=== PATIENT | male | born 1950 ===

== ENCOUNTER 2017-04-09 17:36 | Emergency (ER) | payer MEDICAID, OTHER ==
[2017-04-09 17:36] VITALS: BMI 21.7
[2017-04-09] MEDS ORDERED: Naproxen 550 mg Tab PO STA (17:47)
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
[2017-04-09] MEDS ORDERED: Propofol 10 mg/ml Inj (20 ML) IV ONE (19:11)
[2017-04-09] MEDS ORDERED: Propofol 10 mg/ml Inj (20 ML) ONE (19:43)
[2017-04-10 11:58] VITALS: BP 125/72; PULSE 68; RESP 14
[2017-04-10 12:09] VITALS: TEMP 98.8
--- NOTE | 2017-04-11 10:16 | CT ---
PROCEDURE: CT of the right elbow without contrast HISTORY: R elbow, ? radial head disloc, s/p reloc procedure COMPARISON: Comparison is made to the previous x-ray of the right elbow dated 04/09/2017 TECHNIQUE: Axial and reformatted coronal and sagittal CT images of the right elbow were obtained. FINDINGS: The evaluation of the osseous structures at the right elbow is markedly degraded by beam hardening artifact. There is well corticated bone fragment ossicle adjacent to the proximal head of the right radius. This small ossicles may be due to old fracture coronoid process. There is superior dislocation of the radial head. There is other small ossicle seen at the posterior aspect of the right elbow in the posterior fossa of the distal radius adjacent to olecranon process. Quon-rz-coxffvul osteoarthritic changes and marginal osteophyte formations are seen. There is no evidence of acute displaced fracture. No evidence of significant joint effusion. IMPRESSION: Limited study due to large beam artifact. No evidence of acute displaced fracture. Superior dislocation of the radial head. Well corticated ossicle seen adjacent to the radial head could be due to old fracture at the coronoid process from radial dislocation. Small well corticated ossicle also seen at the posterior fossa of the right elbow posterior to the distal humeral epicondyles and adjacent to the olecranon process. Preliminary report was submitted by [facility].
[2017-04-12 13:07] VITALS: O2SAT 98
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
== END 2017-04-09 21:55 | disposition home or self-care (01) ==
LOC: C.ER 17:36
DX: S53.014A Anterior dislocation of right radial head, initial encounter (principal); V49.50XA Passenger injured in collision with unspecified motor vehicles in traffic accident, initial encounter
CPT/HCPCS: 29105; 73030; 73080; 73110; 73200; 99284; J2704

== ENCOUNTER 2017-05-07 18:26 | Emergency (ER) | payer MEDICAID, OTHER ==
[2017-05-07 18:27] VITALS: BMI 21.7
[2017-05-07 18:41] VITALS: TEMP 98.4; O2SAT 99
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
[2017-05-07 19:50] VITALS: BP 112/68; PULSE 71; RESP 15
--- NOTE | 2017-05-08 06:36 | RAD ---
PROCEDURE: Radiographs of the right elbow. HISTORY: pain and swelling, h.o fx COMPARISON: No prior. FINDINGS: BONES: No evidence of acute fracture. JOINTS: Arthritic changes are seen at the right hip joint. There is round ossicle in between the radial head and proximal ulna may represent loose body in the right elbow joint. SOFT TISSUES: There is soft tissue swelling seen around the right elbow. There is metallic staple overlying the posterior aspect of the right elbow posterior to the distal humerus. JOINT EFFUSION: Right elbow joint effusion is seen. OTHER FINDINGS: None. IMPRESSION: Osteoarthritic changes. No evidence of acute fracture. Abnormal shape of the radial head could be due to old fracture. Possible loose body adjacent to the radial head. Small joint effusion. metallic staple overlying the posterior aspect of the right elbow joint.
== END 2017-05-07 19:49 | disposition home or self-care (01) ==
LOC: C.ER 18:26
DX: M25.521 Pain in right elbow (principal); S42.401D Unspecified fracture of lower end of right humerus, subsequent encounter for fracture with routine healing; X58.XXXD Exposure to other specified factors, subsequent encounter

== ENCOUNTER 2017-05-29 02:28 | Emergency (ER) | payer OTHER ==
[2017-05-29 02:28] VITALS: BMI 21.7
[2017-05-29 02:35] VITALS: BP 120/75; PULSE 76; RESP 20; TEMP 98; O2SAT 99
--- NOTE | 2017-05-29 02:51 | C.PDOC ---
History Of Present Illness 66 year old male who presents to the ER with a complaint of constipation, last bowel movement was 7 days ago. Patient reports he has been taking percocet for pain and notes taking milk of magnesia tonight with no relief. Denies fever or chills. Chief Complaint (Nursing): GI Problem History Per: Patient History/Exam Limitations: no limitations Onset/Duration Of Symptoms: Days Current Symptoms Are (Timing): Still Present Radiation Of Pain To:: None Quality Of Discomfort: Unable To Describe Associated Symptoms: Constipation. denies: Fever, Chills Exacerbating Factors: None Alleviating Factors: None Recent travel outside of the [place]: No Past Medical History Reviewed: Historical Data, Nursing Documentation, Vital Signs Vital Signs: Last Vital Signs Temp 98 F 05/29/17 02:31 Pulse 76 05/29/17 02:31 Resp 20 05/29/17 02:31 BP 120/75 05/29/17 02:31 Pulse Ox 99 05/29/17 03:05 - Medical History PMH: Asthma, Bronchitis Comment Only: HIV (Patient and family denied), HTN (Patient and family denied ), Seizures (Patient and family denied), Sexually Transmitted Disease (Patient and family denied) Family History: States: Unknown Family Hx - Social History Hx Tobacco Use: No Hx Alcohol Use: Yes Hx Substance Use: No - Immunization History Hx Tetanus Toxoid Vaccination: No Hx Influenza Vaccination: No Hx Pneumococcal Vaccination: No Review Of Systems Constitutional: Negative for: Fever, Chills Gastrointestinal: Positive for: Constipation Physical Exam - Physical Exam Appears: Non-toxic, Other (Mild distress) Skin: Normal Color, Warm, Dry Head: Atraumatic, Normacephalic Oral Mucosa: Moist Chest: Symmetrical, No Tenderness Cardiovascular: Rhythm Regular, No Murmur Respiratory: Normal Breath Sounds, No Rales, No Rhonchi, No Wheezing Gastrointestinal/Abdominal: Soft, No Tenderness Rectal: Other (Hardened stools in rectal vault) Neurological/Psych: Oriented x3, Normal Speech, Normal Cognition ED Course And Treatment O2 Sat by Pulse Oximetry: 99 Pulse Ox Interpretation: Normal (Room air) Progress Note: Fleet edema ordered. On reevaluation, patient has disimpacted stools with good results, will discharge home. Disposition Counseled Patient/Family Regarding: Diagnosis - Disposition Referrals: Non [facility] Provider, [Primary Care Provider] - [facility] at [facility] [Outside] Disposition: HOME/ ROUTINE Disposition Time: 03:04 Condition: IMPROVED Prescriptions: Docusate [Colace] 100 mg PO BID #20 cap Instructions: Constipation (GEN), High Fiber Diet (ED) Forms: [facility] (Andorran) - POA Present On Arrival: None - Clinical Impression Clinical Impression: Constipation - Scribe Statement The provider has reviewed the documentation as recorded by the Scribe Daniel Disla All medical record entries made by the Juancarlosibe were at my direction and personally dictated by me. I have reviewed the chart and agree that the record accurately reflects my personal performance of the history, physical exam, medical decision making, and the department course for this patient. I have also personally directed, reviewed, and agree with the discharge instructions and disposition.
== END 2017-05-29 03:09 | disposition home or self-care (01) ==
LOC: SUPCPDRO 02:28 → C.ER 02:28
DX: K59.00 Constipation, unspecified (principal)

== ENCOUNTER 2019-02-05 12:54 | Observation (INO) | payer MEDICAID, OTHER ==
[2019-02-05 13:01] VITALS: BMI 24.4
[2019-02-05 13:55] LABS: BASO % 0.2 % (0.0-2.0); EOS # 0.3 K/uL (0.0-0.7); EOS % 5.5 % (0.0-4.0); HEMOGLOBIN 17.1 g/dL (12.0-18.0); LYMPH # 1.6 K/uL (1.0-4.3); LYMPH % 33.6 % (20.0-40.0); MEAN CELL VOLUME 90.9 fL (80.0-94.0); MEAN CORPUSCULAR HEMOGLOBIN 31.4 pg (27.0-31.0); MEAN CORPUSCULAR HGB CONC 34.5 g/dL (33.0-37.0); MEAN PLATELET VOLUME 9.3 fL (7.2-11.7); MONO # 0.5 K/uL (0.0-0.8); NEUT # 2.4 K/uL (1.8-7.0); NEUT % 49.7 % (50.0-75.0); NRBC % 0.3 % (0.0-2.0); RBC 5.46 Mil/uL (4.40-5.90); RED CELL DISTRIBUTION WIDTH 13.7 % (11.5-14.5); WHITE BLOOD COUNT 4.8 K/uL (4.8-10.8)
[2019-02-05 14:00] LABS: ALB/GLOB RATIO 1.3 (1.0-2.1); ALBUMIN 4.1 g/dL (3.5-5.0); ALT/SGPT 28 U/L (21-72); AST/SGOT 27 U/L (17-59); BLOOD UREA NITROGEN 15 mg/dL (9-20); CALCIUM 9.4 mg/dl (8.6-10.4); GFR NON-AFRICAN AMERICAN > 60
[2019-02-05 14:12] LABS: B-TYPE NATRIURETIC PEPTIDE 39.3 pg/mL (0-900)
--- NOTE | 2019-02-05 14:12 | C.PDOC ---
History Of Present Illness 68 year old male with PMHx of prostate cancer presents to the ED complaining of intermittent chest pain ongoing for 3 days. Reports he woke up this morning around 0400 with central chest pain radiating to his left side and back. Reports pain is rated 10/10 and is associated with shortness of breath. Denies any lightheadedness, dizziness, headache, fever, chills, syncope, diaphoresis, or any other physical complaints. Time Seen by Provider: 02/05/19 13:12 Chief Complaint (Nursing): Chest Pain History Per: Patient History/Exam Limitations: no limitations Onset/Duration Of Symptoms: Days Current Symptoms Are (Timing): Still Present Quality: "Pain" Associated Symptoms: Dyspnea. denies: Nausea, Diaphoresis, Syncope Past Medical History Reviewed: Historical Data, Nursing Documentation, Vital Signs Vital Signs: Last Vital Signs Temp 98.8 F 02/05/19 12:58 Pulse 95 H 02/05/19 12:58 Resp 18 02/05/19 12:58 BP 156/69 H 02/05/19 12:58 Pulse Ox 99 02/05/19 12:58 Primary Care Provider: FAMILY PROVIDER,NO - Medical History PMH: Asthma, Bronchitis Comment Only: HIV (Patient and family denied), HTN (Patient and family denied), Seizures (Patient and family denied), Sexually Transmitted Disease (Patient and family denied) Other Surgeries: Hx of surgeries Family History: States: No Known Family Hx - Social History Hx Tobacco Use: No Hx Alcohol Use: Yes Hx Substance Use: No - Immunization History Hx Tetanus Toxoid Vaccination: No Hx Influenza Vaccination: No Hx Pneumococcal Vaccination: No Review Of Systems Except As Marked, All Systems Reviewed And Found Negative. Constitutional: Negative for: Fever, Chills, Sweats Cardiovascular: Positive for: Chest Pain. Negative for: Light Headedness Respiratory: Positive for: Shortness of Breath Gastrointestinal: Negative for: Nausea, Vomiting, Abdominal Pain, Diarrhea Neurological: Negative for: Headache, Dizziness Physical Exam - Physical Exam Appears: Non-toxic, No Acute Distress Skin: Warm, Dry, No Rash Head: Normacephalic Eye(s): bilateral: Normal Inspection, PERRL, EOMI Oral Mucosa: Moist Neck: Supple Chest: Symmetrical, No Tenderness Cardiovascular: Rhythm Regular Respiratory: Normal Breath Sounds, No Rales, No Rhonchi, No Wheezing Gastrointestinal/Abdominal: Soft, No Tenderness Extremity: No Pedal Edema Pulses: Left Dorsalis Pedis: Normal, Right Dorsalis Pedis: Normal Neurological/Psych: Oriented x3, Normal Speech, Normal Motor, Normal Sensation Gait: Steady ED Course And Treatment - Laboratory Results Result Diagrams: 02/05/19 13:37 02/05/19 13:37 Lab Results: Total Bilirubin 0.8 mg/dL (0.2-1.3) 02/05/19 13:37 AST 27 U/L (17-59) 02/05/19 13:37 ALT 28 U/L (21-72) 02/05/19 13:37 Alkaline Phosphatase 51 U/L (38-126) 02/05/19 13:37 Total Protein 7.3 g/dL (6.3-8.3) 02/05/19 13:37 Albumin 4.1 g/dL (3.5-5.0) 02/05/19 13:37 Globulin 3.2 gm/dL (2.2-3.9) 02/05/19 13:37 Albumin/Globulin Ratio 1.3 (1.0-2.1) 02/05/19 13:37 ECG: Interpreted By Me, Viewed By Me ECG Rhythm: Sinus Rhythm Interpretation Of ECG: No ST elevations/depressions Rate From EC O2 Sat by Pulse Oximetry: 99 (RA) Pulse Ox Interpretation: Normal Medical Decision Making Medical Decision Making: Differentials - Unstable angina vs. ACS vs. PE vs. Musculoskeletal pain Plan - EKG - Bloodwork Disposition - Disposition Disposition: HOSPITALIZED Disposition Time: 15:29 Condition: GUARDED Forms: [facility] (Belarusian) - POA Present On Arrival: None - Clinical Impression Clinical Impression: Chest pain - Scribe Statement The provider has reviewed the documentation as recorded by the Scribe Ratna Montalvo All medical record entries made by the Juancarlosibe were at my direction and personally dictated by me. I have reviewed the chart and agree that the record accurately reflects my personal performance of the history, physical exam, medical decision making, and the department course for this patient. I have also personally directed, reviewed, and agree with the discharge instructions and di sposition. Decision To Admit - Pt Status Changed To: Hospital Disposition Of: Observation - InPatient: Physician Admission Certification: I certify that this patient requires 2 or more midnights of care for the following reason:: chest pain - . Bed Request Type: Telemetry Admitting Physician: Charles Alexander Patient Diagnosis: Chest pain
--- NOTE | 2019-02-05 15:58 | RAD ---
Date of service: 02/05/2019 HISTORY: SOB COMPARISON: None available. TECHNIQUE: 1 view obtained. FINDINGS: LUNGS: Poor inspiration with low lung volumes common crowded bronchovascular markings and mild bibasilar atelectasis. PLEURA: No significant pleural effusion identified, no pneumothorax apparent. CARDIOVASCULAR: No aortic atherosclerotic calcification present. Mild cardiomegaly. No pulmonary vascular congestion. OSSEOUS STRUCTURES: No significant abnormalities. VISUALIZED UPPER ABDOMEN: Normal. OTHER FINDINGS: None. IMPRESSION: Poor inspiration with low lung volumes common crowded bronchovascular markings and mild bibasilar atelectasis.
--- NOTE | 2019-02-05 16:18 | CP.PCM.HP ---
<Linnette NeelyLulu - Last Filed: 02/05/19 16:57> History of Present Illness - History of Present Illness History of Present Illness: Patient is a 68 year old male with a past medical history of prostate cancer (resected 2 years ago), who presents to the hospital with complaints of chest pain. He states hes had constant non-radiating left sided chest pain for 3 days that became more severe since last night at 4 am. The pain is worse with respiration. He took two Tylenol last night which slightly helped relieve his discomfort. He has has a similar, more mild, episode about 2 years ago that went away on its own- he did not see a doctor or go to the ER. He states he is able to walk without fatigue or shortness of breath. The patient currently denies having chest pain while in the ER, palpitations, dyspnea, cough, n/v, abdominal pain, fevers, headaches, vision changes, numbness/tingling, leg pain and swelling. PMD: none (hasnt seen a Dr in 2 years, previously- Dr. Bhakta) PMHX: prostate cancer SurgHx: prostate resection 2years ago; abdominal surgery? after cutting himself on a machine many yrs ago FamHx: Brothers- prostate cancer SocHx: denies tobacco, alcohol and drug use Allergies: NKDA Medications: none Present on Admission - Present on Admission Any Indicators Present on Admission: No Review of Systems - Constitutional Constitutional: absent: Chills, Fever, Weakness - EENT Eyes: absent: Change in Vision Ears: absent: Dizziness - Cardiovascular Cardiovascular: Chest Pain. absent: Dyspnea, Dyspnea on Exertion, Edema, Irregular Heart Rhythm, Pain Radiating to Arm/Neck/Jaw, Leg Edema, Lightheadedness, Palpitations, Radiating Pain, Rapid Heart Rate - Respiratory Respiratory: Pain on Inspiration. absent: Cough, Dyspnea, Hemoptysis, Change in Mucous Color - Gastrointestinal Gastrointestinal: absent: Abdominal Pain, Constipation, Diarrhea, Nausea, Vomiting - Genitourinary Genitourinary: absent: Dysuria - Musculoskeletal Musculoskeletal: absent: Numbness, Tingling - Neurological Neurological: absent: Dizziness, Headaches, Loss of Vision - Endocrine Endocrine: absent: Palpitations Past Patient History - Infectious Disease Hx of Infectious Diseases: None - Past Medical History & Family History Past Medical History?: Yes - Past Social History Smoking Status: Never Smoked - CARDIAC Hx Hypertension: (Patient and family denied) - PULMONARY Hx Asthma: Yes Hx Bronchitis: Yes - NEUROLOGICAL Hx Seizures: (Patient and family denied) - HEMATOLOGICAL/ONCOLOGICAL Hx Human Immunodeficiency Virus (HIV): (Patient and family denied) - GENITOURINARY/GYNECOLOGICAL Hx Sexually Transmitted Disorders: (Patient and family denied) - PSYCHIATRIC Hx Substance Use: No - SURGICAL HISTORY Hx Surgeries: Yes (bladder repair 20 yrs ago) Hx Eye Surgery: Yes (exc pterygium) Hx Orthopedic Surgery: Yes (RIGHT ELBOW) Other/Comment: hernia repairs. EYE SURGERY. prostate surgery - ANESTHESIA Hx Anesthesia: Yes Hx Anesthesia Reactions: No Hx Malignant Hyperthermia: No Meds Allergies/Adverse Reactions: Allergies Allergy/AdvReac Type Severity Reaction Status Date / Time No Known Allergies Allergy Verified 02/05/19 12:57 Physical Exam - Constitutional Appears: Non-toxic, No Acute Distress - Head Exam Head Exam: ATRAUMATIC, NORMAL INSPECTION - Eye Exam Eye Exam: EOMI - ENT Exam ENT Exam: Mucous Membranes Moist - Respiratory Exam Respiratory Exam: Clear to Auscultation Bilateral, NORMAL BREATHING PATTERN. absent: Rales, Rhonchi, Wheezes, Respiratory Distress - Cardiovascular Exam Cardiovascular Exam: REGULAR RHYTHM, +S1, +S2. absent: Diastolic murmur, Systolic Murmur - GI/Abdominal Exam GI & Abdominal Exam: Normal Bowel Sounds, Soft. absent: Distended, Firm, Guarding, Tenderness - Extremities Exam Extremities exam: Positive for: normal inspection, pedal pulses present. Negative for: pedal edema, tenderness - Neurological Exam Neurological exam: Alert, Oriented x3 - Psychiatric Exam Psychiatric exam: Normal Affect, Normal Mood - Skin Skin Exam: Dry, Intact, Normal Color, Warm Results - Vital Signs Recent Vital Signs: Last Vital Signs Temp 98.8 F 02/05/19 12:58 Pulse 75 02/05/19 16:02 Resp 16 02/05/19 16:02 BP 102/75 02/05/19 16:02 Pulse Ox 98 02/05/19 16:02 - Labs Result Diagrams: 02/05/19 13:37 02/05/19 13:37 Labs: Laboratory Results - last 24 hr 02/05/19 02/05/19 13:37 13:37 WBC 4.8 RBC 5.46 Hgb 17.1 Hct 49.7 MCV 90.9 MCH 31.4 H MCHC 34.5 RDW 13.7 Plt Count 198 MPV 9.3 Neut % (Auto) 49.7 L Lymph % (Auto) 33.6 Wise % (Auto) 11.0 H Eos % (Auto) 5.5 H Baso % (Auto) 0.2 Neut # (Auto) 2.4 Lymph # (Auto) 1.6 Wise # (Auto) 0.5 Eos # (Auto) 0.3 Baso # (Auto) 0.0 Sodium 139 Potassium 3.8 Chloride 104 Carbon Dioxide 24 Anion Gap 15 BUN 15 Creatinine 0.8 Est GFR ( Amer) > 60 Est GFR (Non-Af Amer) > 60 Random Glucose 87 D Calcium 9.4 Total Bilirubin 0.8 AST 27 ALT 28 Alkaline Phosphatase 51 Troponin I < 0.0120 NT-Pro-B Natriuret Pep 39.3 Total Protein 7.3 Albumin 4.1 Globulin 3.2 Albumin/Globulin Ratio 1.3 Assessment & Plan - Assessment and Plan (Free Text) Plan: 68 year old male with a past medical history of prostate cancer (resected 2 years ago), who presents to the hospital with complaints of chest pain. Chest pain - r/o ACS; monitor on telemetry - Tropx1: negative, follow up trops #2&3 - EKG: NSR@92bpm, no ST changes; follow up repeat [id number] - CXR: poor inspiration w/low lung volumes common crowded bronchovascular markings and mild bibasilar atelectasis. - BNP: 39.3 - DDimer: f/u - TSH/Free T4: f/u - A1c: f/u - Lipid panel: f/u - Echo: f/u - Medications: Started asa 81mg PO daily and crestor 5mg PO HS Hx of Prostate Cancer - Resected 2 years ago Prophylaxis - DVT: SCDs - GI: not indicated Case discussed with Dr. Catherine Muhammad, PGY2 <Charles Alexander - Last Filed: 02/06/19 07:43> Results - Vital Signs Recent Vital Signs: Last Vital Signs Temp 98.4 F 02/05/19 23:10 Pulse 57 L 02/06/19 01:00 Resp 20 02/05/19 23:10 BP 100/63 02/05/19 23:10 Pulse Ox 95 02/05/19 23:10 - Labs Result Diagrams: 02/06/19 06:25 02/06/19 06:25 Labs: Laboratory Results - last 24 hr 02/05/19 02/05/19 02/05/19 13:37 13:37 13:37 WBC 4.8 RBC 5.46 Hgb 17.1 Hct 49.7 MCV 90.9 MCH 31.4 H MCHC 34.5 RDW 13.7 Plt Count 198 MPV 9.3 Neut % (Auto) 49.7 L Lymph % (Auto) 33.6 Wise % (Auto) 11.0 H Eos % (Auto) 5.5 H Baso % (Auto) 0.2 Neut # (Auto) 2.4 Lymph # (Auto) 1.6 Wise # (Auto) 0.5 Eos # (Auto) 0.3 Baso # (Auto) 0.0 PT INR D-Dimer, Quantitative Sodium 139 Potassium 3.8 Chloride 104 Carbon Dioxide 24 Anion Gap 15 BUN 15 Creatinine 0.8 Est GFR ( Amer) > 60 Est GFR (Non-Af Amer) > 60 Random Glucose 87 D Hemoglobin A1c 5.7 Calcium 9.4 Total Bilirubin 0.8 AST 27 ALT 28 Alkaline Phosphatase 51 Total Creatine Kinase CK-MB (Mass) Troponin I < 0.0120 NT-Pro-B Natriuret Pep 39.3 Total Protein 7.3 Albumin 4.1 Globulin 3.2 Albumin/Globulin Ratio 1.3 Triglycerides Cholesterol LDL Cholesterol Direct HDL Cholesterol Free T4 Thyroxine (T4) TSH 3rd Generation 02/05/19 02/05/19 02/05/19 13:37 15:49 22:12 WBC RBC Hgb Hct MCV MCH MCHC RDW Plt Count MPV Neut % (Auto) Lymph % (Auto) Wise % (Auto) Eos % (Auto) Baso % (Auto) Neut # (Auto) Lymph # (Auto) Wise # (Auto) Eos # (Auto) Baso # (Auto) PT 11.7 INR 1.06 D-Dimer, Quantitative < 200 Sodium Potassium Chloride Carbon Dioxide Anion Gap BUN Creatinine Est GFR ( Amer) Est GFR (Non-Af Amer) Random Glucose Hemoglobin A1c Calcium Total Bilirubin AST ALT Alkaline Phosphatase Total Creatine Kinase 99 CK-MB (Mass) 1.50 Troponin I < 0.0120 NT-Pro-B Natriuret Pep Total Protein Albumin Globulin Albumin/Globulin Ratio Triglycerides 88 D Cholesterol 166 LDL Cholesterol Direct 95 HDL Cholesterol 56 Free T4 Thyroxine (T4) 10.8 TSH 3rd Generation 2.01 02/06/19 02/06/19 02/06/19 01:30 06:25 06:25 WBC 5.4 RBC 5.42 Hgb 16.8 Hct 49.2 MCV 90.9 MCH 30.9 MCHC 34.0 RDW 13.4 Plt Count 188 MPV 9.1 Neut % (Auto) 49.0 L Lymph % (Auto) 35.9 Wise % (Auto) 8.8 Eos % (Auto) 6.2 H Baso % (Auto) 0.1 Neut # (Auto) 2.7 Lymph # (Auto) 2.0 Wise # (Auto) 0.5 Eos # (Auto) 0.3 Baso # (Auto) 0.0 PT INR D-Dimer, Quantitative Sodium 138 Potassium 4.1 Chloride 105 Carbon Dioxide 24 Anion Gap 13 BUN 19 Creatinine 0.9 Est GFR ( Amer) > 60 Est GFR (Non-Af Amer) > 60 Random Glucose 102 Hemoglobin A1c Calcium 8.7 Total Bilirubin 0.4 AST 25 ALT 27 Alkaline Phosphatase 48 Total Creatine Kinase 78 CK-MB (Mass) 1.01 Troponin I < 0.0120 NT-Pro-B Natriuret Pep Total Protein 6.6 Albumin 3.8 Globulin 2.8 Albumin/Globulin Ratio 1.4 Triglycerides Cholesterol LDL Cholesterol Direct HDL Cholesterol Free T4 Thyroxine (T4) TSH 3rd Generation 02/06/19 06:25 WBC RBC Hgb Hct MCV MCH MCHC RDW Plt Count MPV Neut % (Auto) Lymph % (Auto) Wise % (Auto) Eos % (Auto) Baso % (Auto) Neut # (Auto) Lymph # (Auto) Wise # (Auto) Eos # (Auto) Baso # (Auto) PT INR D-Dimer, Quantitative Sodium Potassium Chloride Carbon Dioxide Anion Gap BUN Creatinine Est GFR ( Amer) Est GFR (Non-Af Amer) Random Glucose Hemoglobin A1c Calcium Total Bilirubin AST ALT Alkaline Phosphatase Total Creatine Kinase CK-MB (Mass) Troponin I NT-Pro-B Natriuret Pep Total Protein Albumin Globulin Albumin/Globulin Ratio Triglycerides Cholesterol LDL Cholesterol Direct HDL Cholesterol Free T4 1.00 Thyroxine (T4) TSH 3rd Generation Attending/Attestation - Attestation I have personally seen and examined this patient.: Yes I have fully participated in the care of the patient.: Yes I have reviewed all pertinent clinical information: Yes
[2019-02-05 17:50] LABS: D DIMER < 200 ng/mlDDU (0-243); INR 1.06 (0.92-1.08); PROTHROMBIN TIME 11.7 SECONDS (9.7-12.2)
[2019-02-05 22:37] VITALS: RESP 20
[2019-02-06 02:16] LABS: CK-MB 1.01 ng/mL (0.0-3.38)
[2019-02-06 06:32] LABS: BASO % 0.1 % (0.0-2.0); EOS # 0.3 K/uL (0.0-0.7); EOS % 6.2 % (0.0-4.0); HEMOGLOBIN 16.8 g/dL (12.0-18.0); LYMPH % 35.9 % (20.0-40.0); MEAN CELL VOLUME 90.9 fL (80.0-94.0); MEAN CORPUSCULAR HEMOGLOBIN 30.9 pg (27.0-31.0); MEAN PLATELET VOLUME 9.1 fL (7.2-11.7); MONO # 0.5 K/uL (0.0-0.8); MONO % 8.8 % (0.0-10.0); NEUT # 2.7 K/uL (1.8-7.0); RBC 5.42 Mil/uL (4.40-5.90); RED CELL DISTRIBUTION WIDTH 13.4 % (11.5-14.5); WHITE BLOOD COUNT 5.4 K/uL (4.8-10.8)
[2019-02-06 07:03] LABS: ALB/GLOB RATIO 1.4 (1.0-2.1); ALBUMIN 3.8 g/dL (3.5-5.0); ALT/SGPT 27 U/L (21-72); AST/SGOT 25 U/L (17-59); BLOOD UREA NITROGEN 19 mg/dL (9-20); CALCIUM 8.7 mg/dl (8.6-10.4); GFR NON-AFRICAN AMERICAN > 60
--- NOTE | 2019-02-06 08:40 | CP.PCM.DIS ---
<Francesco Elder - Last Filed: 02/06/19 15:52> Provider - Provider Date of Admission: 02/05/19 15:30 Attending physician: Charles Alexander DO Time Spent in preparation of Discharge (in minutes): 45 Hospital Course - Lab Results Lab Results: Most Recent Lab Values WBC 5.4 K/uL (4.8-10.8) 02/06/19 06:25 RBC 5.42 Mil/uL (4.40-5.90) 02/06/19 06:25 Hgb 16.8 g/dL (12.0-18.0) 02/06/19 06:25 Hct 49.2 % (35.0-51.0) 02/06/19 06:25 MCV 90.9 fL (80.0-94.0) 02/06/19 06:25 MCH 30.9 pg (27.0-31.0) 02/06/19 06:25 MCHC 34.0 g/dL (33.0-37.0) 02/06/19 06:25 RDW 13.4 % (11.5-14.5) 02/06/19 06:25 Plt Count 188 K/uL (130-400) 02/06/19 06:25 MPV 9.1 fL (7.2-11.7) 02/06/19 06:25 Neut % (Auto) 49.0 % (50.0-75.0) L 02/06/19 06:25 Lymph % (Auto) 35.9 % (20.0-40.0) 02/06/19 06:25 [place] % (Auto) 8.8 % (0.0-10.0) 02/06/19 06:25 Eos % (Auto) 6.2 % (0.0-4.0) H 02/06/19 06:25 Baso % (Auto) 0.1 % (0.0-2.0) 02/06/19 06:25 Neut # (Auto) 2.7 K/uL (1.8-7.0) 02/06/19 06:25 Lymph # (Auto) 2.0 K/uL (1.0-4.3) 02/06/19 06:25 [place] # (Auto) 0.5 K/uL (0.0-0.8) 02/06/19 06:25 Eos # (Auto) 0.3 K/uL (0.0-0.7) 02/06/19 06:25 Baso # (Auto) 0.0 K/uL (0.0-0.2) 02/06/19 06:25 PT 11.7 SECONDS (9.7-12.2) 02/05/19 15:49 INR 1.06 (0.92-1.08) 02/05/19 15:49 D-Dimer, Quantitative < 200 ng/mlDDU (0-243) 02/05/19 15:49 Sodium 138 mmol/L (132-148) 02/06/19 06:25 Potassium 4.1 mmol/L (3.6-5.2) 02/06/19 06:25 Chloride 105 mmol/L (98-107) 02/06/19 06:25 Carbon Dioxide 24 mmol/L (22-30) 02/06/19 06:25 Anion Gap 13 (10-20) 02/06/19 06:25 BUN 19 mg/dL (9-20) 02/06/19 06:25 Creatinine 0.9 mg/dL (0.8-1.5) 02/06/19 06:25 Est GFR ( Amer) > 60 02/06/19 06:25 Est GFR (Non-Af Amer) > 60 02/06/19 06:25 Random Glucose 102 mg/dL (75-110) 02/06/19 06:25 Hemoglobin A1c 5.7 % (4.2-6.5) 02/05/19 13:37 Calcium 8.7 mg/dl (8.6-10.4) 02/06/19 06:25 Total Bilirubin 0.4 mg/dL (0.2-1.3) 02/06/19 06:25 AST 25 U/L (17-59) 02/06/19 06:25 ALT 27 U/L (21-72) 02/06/19 06:25 Alkaline Phosphatase 48 U/L (38-126) 02/06/19 06:25 Total Creatine Kinase 78 U/L (55-170) 02/06/19 01:30 CK-MB (Mass) 1.01 ng/mL (0.0-3.38) 02/06/19 01:30 Troponin I < 0.0120 ng/mL (0.00-0.120) 02/06/19 01:30 NT-Pro-B Natriuret Pep 39.3 pg/mL (0-900) 02/05/19 13:37 Total Protein 6.6 g/dL (6.3-8.3) 02/06/19 06:25 Albumin 3.8 g/dL (3.5-5.0) 02/06/19 06:25 Globulin 2.8 gm/dL (2.2-3.9) 02/06/19 06:25 Albumin/Globulin Ratio 1.4 (1.0-2.1) 02/06/19 06:25 Triglycerides 88 mg/dL (0-149) D 02/05/19 13:37 Cholesterol 166 mg/dL (0-199) 02/05/19 13:37 LDL Cholesterol Direct 95 mg/dL (0-129) 02/05/19 13:37 HDL Cholesterol 56 mg/dL (30-70) 02/05/19 13:37 Free T4 1.00 ng/dL (0.78-2.19) 02/06/19 06:25 Thyroxine (T4) 10.8 ug/dL (5.5-11.0) 02/05/19 13:37 TSH 3rd Generation 2.01 mIU/L (0.46-4.68) 02/05/19 13:37 - Hospital Course Hospital Course: HPI Patient is a 68 year old male with a past medical history of prostate cancer (resected 2 years ago), who presents to the hospital with complaints of chest pain. He states hes had constant non-radiating left sided chest pain for 3 days that became more severe since last night at 4 am. The pain is worse with respiration. He took two Tylenol last night which slightly helped relieve his discomfort. He has has a similar, more mild, episode about 2 years ago that went away on its own- he did not see a doctor or go to the ER. He states he is able to walk without fatigue or shortness of breath. The patient currently denies having chest pain while in the ER, palpitations, dyspnea, cough, n/v, abdominal pain, fevers, headaches, vision changes, numbness/tingling, leg pain and swelling. Hospital Course Patient hospitalized for chest pain, observation overnight to rule out ACS. Chest x-ray was unremarkable, EKG normal sinus with no ST or T wave changes, and cardiac enzymes negative x3. D-dimer negative - low probability for PE. A1C 5.7 and lipid panel all WNL. Patient found to be in no acute distress, and was cleared for discharge per primary team Imaging - CXR 02/05: poor inspiration w/low lung volumes common crowded bronchovascular markings and mild bibasilar atelectasis. This is just a summary of the events of this hospitalization. For details please refer to complete medical records. Discharge Exam - Head Exam Head Exam: ATRAUMATIC, NORMAL INSPECTION - Eye Exam Eye Exam: EOMI, Normal appearance - Respiratory Exam Respiratory Exam: Clear to PA & Lateral, NORMAL BREATHING PATTERN. absent: Rales, Rhonchi, Wheezes - Cardiovascular Exam Cardiovascular Exam: REGULAR RHYTHM, +S1, +S2 - GI/Abdominal Exam GI & Abdominal Exam: Normal Bowel Sounds, Soft. absent: Tenderness - Extremities Exam Extremities exam: normal inspection - Neurological Exam Neurological exam: Alert, CN II-XII Intact, Oriented x3 - Psychiatric Exam Psychiatric exam: Normal Affect, Normal Mood - Skin Skin Exam: Dry, Intact Discharge Plan - Discharge Medications Prescriptions: Aspirin [Ecotrin] 81 mg PO DAILY #30 tabec Rosuvastatin Calcium [Crestor] 5 mg PO HS #30 tab - Follow Up Plan Condition: GUARDED Disposition: HOME/ ROUTINE Instructions: Heart Healthy Diet, Chest Pain (DC), Aspirin, Rosuvastatin Additional Instructions: Patient is cleared for discharger per primary team Please continue to take your medications which have been prescribed to you -Aspirin 81 mg one tab by mouth at bedtime (can purchase over the counter) -Crestor 5 mg one tab by mouth at bedtime (script has been provided) Please make sure to follow up with your primary doctor within 5-7 days of discharge Please return to ER if symptoms recur or worsen <Charles Alexander - Last Filed: 02/06/19 16:35> Provider - Provider Date of Admission: 02/05/19 15:30 Attending physician: Charles Alexander, DO Hospital Course - Lab Results Lab Results: Most Recent Lab Values WBC 5.4 K/uL (4.8-10.8) 02/06/19 06:25 RBC 5.42 Mil/uL (4.40-5.90) 02/06/19 06:25 Hgb 16.8 g/dL (12.0-18.0) 02/06/19 06:25 Hct 49.2 % (35.0-51.0) 02/06/19 06:25 MCV 90.9 fL (80.0-94.0) 02/06/19 06:25 MCH 30.9 pg (27.0-31.0) 02/06/19 06:25 MCHC 34.0 g/dL (33.0-37.0) 02/06/19 06:25 RDW 13.4 % (11.5-14.5) 02/06/19 06:25 Plt Count 188 K/uL (130-400) 02/06/19 06:25 MPV 9.1 fL (7.2-11.7) 02/06/19 06:25 Neut % (Auto) 49.0 % (50.0-75.0) L 02/06/19 06:25 Lymph % (Auto) 35.9 % (20.0-40.0) 02/06/19 06:25 [place] % (Auto) 8.8 % (0.0-10.0) 02/06/19 06:25 Eos % (Auto) 6.2 % (0.0-4.0) H 02/06/19 06:25 Baso % (Auto) 0.1 % (0.0-2.0) 02/06/19 06:25 Neut # (Auto) 2.7 K/uL (1.8-7.0) 02/06/19 06:25 Lymph # (Auto) 2.0 K/uL (1.0-4.3) 02/06/19 06:25 [place] # (Auto) 0.5 K/uL (0.0-0.8) 02/06/19 06:25 Eos # (Auto) 0.3 K/uL (0.0-0.7) 02/06/19 06:25 Baso # (Auto) 0.0 K/uL (0.0-0.2) 02/06/19 06:25 PT 11.7 SECONDS (9.7-12.2) 02/05/19 15:49 INR 1.06 (0.92-1.08) 02/05/19 15:49 D-Dimer, Quantitative < 200 ng/mlDDU (0-243) 02/05/19 15:49 Sodium 138 mmol/L (132-148) 02/06/19 06:25 Potassium 4.1 mmol/L (3.6-5.2) 02/06/19 06:25 Chloride 105 mmol/L (98-107) 02/06/19 06:25 Carbon Dioxide 24 mmol/L (22-30) 02/06/19 06:25 Anion Gap 13 (10-20) 02/06/19 06:25 BUN 19 mg/dL (9-20) 02/06/19 06:25 Creatinine 0.9 mg/dL (0.8-1.5) 02/06/19 06:25 Est GFR ( Amer) > 60 02/06/19 06:25 Est GFR (Non-Af Amer) > 60 02/06/19 06:25 Random Glucose 102 mg/dL (75-110) 02/06/19 06:25 Hemoglobin A1c 5.7 % (4.2-6.5) 02/05/19 13:37 Calcium 8.7 mg/dl (8.6-10.4) 02/06/19 06:25 Total Bilirubin 0.4 mg/dL (0.2-1.3) 02/06/19 06:25 AST 25 U/L (17-59) 02/06/19 06:25 ALT 27 U/L (21-72) 02/06/19 06:25 Alkaline Phosphatase 48 U/L (38-126) 02/06/19 06:25 Total Creatine Kinase 78 U/L (55-170) 02/06/19 01:30 CK-MB (Mass) 1.01 ng/mL (0.0-3.38) 02/06/19 01:30 Troponin I < 0.0120 ng/mL (0.00-0.120) 02/06/19 01:30 NT-Pro-B Natriuret Pep 39.3 pg/mL (0-900) 02/05/19 13:37 Total Protein 6.6 g/dL (6.3-8.3) 02/06/19 06:25 Albumin 3.8 g/dL (3.5-5.0) 02/06/19 06:25 Globulin 2.8 gm/dL (2.2-3.9) 02/06/19 06:25 Albumin/Globulin Ratio 1.4 (1.0-2.1) 02/06/19 06:25 Triglycerides 88 mg/dL (0-149) D 02/05/19 13:37 Cholesterol 166 mg/dL (0-199) 02/05/19 13:37 LDL Cholesterol Direct 95 mg/dL (0-129) 02/05/19 13:37 HDL Cholesterol 56 mg/dL (30-70) 02/05/19 13:37 Free T4 1.00 ng/dL (0.78-2.19) 02/06/19 06:25 Thyroxine (T4) 10.8 ug/dL (5.5-11.0) 02/05/19 13:37 TSH 3rd Generation 2.01 mIU/L (0.46-4.68) 02/05/19 13:37 Attending/Attestation - Attestation I have personally seen and examined this patient.: Yes I have fully participated in the care of the patient.: Yes I have reviewed all pertinent clinical information, including history, physical exam and plan: Yes Notes (Text): 02/06/19 16:34 Medical attending: Patient was seen and examined by me. Agree with the above note by the resident The cardiac enzymes are x3 negative and also the EKG was stable. He went for 2D echo as well. The patient we also had him walk with us and he was able to walk around the ent irety of 6T without developing chest pain or shortness of breath The telemetry during the night was NSR in the 70s and it did not record any events We advised the patient to follow up in the clinic for the echo results. Thank you Charles Alexander
--- NOTE | 2019-02-06 11:16 | CP.PCM.PN ---
<Francesco Elder - Last Filed: 02/06/19 11:08> Subjective - Date & Time of Evaluation Date of Evaluation: 02/06/19 Time of Evaluation: 11:18 - Subjective Subjective: PGY-[address] Alexander Patient seen and examined at bedside. No acute events overnight. Patient no longer having chest pain. Denies shortness of breath, dizziness, headache, numbness or tingling, nausea, vomiting, diarrhea. Objective - Vital Signs/Intake and Output Vital Signs (last 24 hours): Temp Pulse Resp BP Pulse Ox 98.0 F 67 20 107/69 100 02/06/19 08:14 02/06/19 08:14 02/06/19 08:14 02/06/19 08:14 02/06/19 08:14 Intake and Output: 02/06/19 02/06/19 06:59 18:59 Intake Total 18 Balance 18 - Medications Medications: Current Medications Aspirin (Aspirin Chewable) 81 mg PO DAILY [facility] Last Admin: 02/06/19 10:35 Dose: 81 mg Heparin Sodium (Porcine) (Heparin) 5,000 units SC Q12H [facility] Last Admin: 02/06/19 10:05 Dose: 5,000 units Ketorolac Tromethamine (Toradol) 15 mg IVP Q6 PRN PRN Reason: Pain, moderate (4-7) Rosuvastatin Calcium (Crestor) 5 mg PO HS [facility] Last Admin: 02/05/19 22:45 Dose: 5 mg - Labs Labs: 02/06/19 06:25 02/06/19 06:25 PT 11.7 SECONDS (9.7-12.2) 02/05/19 15:49 INR 1.06 (0.92-1.08) 02/05/19 15:49 - Constitutional Appears: Non-toxic, No Acute Distress - Head Exam Head Exam: ATRAUMATIC, NORMOCEPHALIC - Eye Exam Eye Exam: EOMI - ENT Exam ENT Exam: Mucous Membranes Moist - Respiratory Exam Respiratory Exam: Clear to Ausculation Bilateral, NORMAL BREATHING PATTERN. absent: Rhonchi, Wheezes - Cardiovascular Exam Cardiovascular Exam: REGULAR RHYTHM, +S1, +S2 - GI/Abdominal Exam GI & Abdominal Exam: Soft, Normal Bowel Sounds. absent: Tenderness - Extremities Exam Extremities Exam: Normal Inspection. absent: Pedal Edema, Tenderness - Neurological Exam Neurological Exam: Alert, Awake, Oriented x3 - Psychiatric Exam Psychiatric exam: Normal Affect, Normal Mood - Skin Skin Exam: Dry, Intact Assessment and Plan - Assessment and Plan (Free Text) Assessment: 68 year old male with a past medical history of prostate cancer (resected 2 years ago), who presents to the hospital with complaints of chest pain. Chest pain, r/o ACS - monitor on telemetry - Trop negative x3 - EKG: NSR@92bpm, no ST changes, normal EKGs x 3 - CXR: poor inspiration w/low lung volumes common crowded bronchovascular markings and mild bibasilar atelectasis. - BNP: 39.3 - DDimer WNL - TSH/Free T4 WNL - A1c 5.7 - Lipid panel WNL - Echo: f/u - Medications: Started asa 81mg PO daily and crestor 5mg PO HS Hx of Prostate Cancer - Resected 2 years ago Prophylaxis - DVT: SCDs - GI: not indicated Case discussed with Dr. Catherine Elder, PGY-1 <Charles Alexander H - Last Filed: 02/06/19 13:08> Objective - Vital Signs/Intake and Output Vital Signs (last 24 hours): Temp Pulse Resp BP Pulse Ox 98.0 F 71 20 107/69 100 02/06/19 08:14 02/06/19 12:42 02/06/19 08:14 02/06/19 08:14 02/06/19 11:55 Intake and Output: 02/06/19 02/06/19 06:59 18:59 Intake Total 18 Balance 18 - Medications Medications: Current Medications Aspirin (Aspirin Chewable) 81 mg PO DAILY [facility] Last Admin: 02/06/19 10:35 Dose: 81 mg Heparin Sodium (Porcine) (Heparin) 5,000 units SC Q12H [facility] Last Admin: 02/06/19 10:05 Dose: 5,000 units Ketorolac Tromethamine (Toradol) 15 mg IVP Q6 PRN PRN Reason: Pain, moderate (4-7) Rosuvastatin Calcium (Crestor) 5 mg PO HS [facility] Last Admin: 02/05/19 22:45 Dose: 5 mg - Labs Labs: 02/06/19 06:25 02/06/19 06:25 PT 11.7 SECONDS (9.7-12.2) 02/05/19 15:49 INR 1.06 (0.92-1.08) 02/05/19 15:49 Attending/Attestation - Attestation I have personally seen and examined this patient.: Yes I have fully participated in the care of the patient.: Yes I have reviewed all pertinent clinical information, including history, physical exam and plan: Yes Notes (Text): 02/06/19 13:06 Medical attending: Patient was seen and examined by me. Agree with the above note by the resident The patient was not in any acute distress when we came and saw the patient, he was being moved to have the echo done His cardiac enzymes have been negative x 3. Later in the afternoon we will see him again and walk him around and see how he does when walking, possible could be discharged later this evening. Charles Alexander
[2019-02-06 15:54] VITALS: BP 111/63; PULSE 72; TEMP 97.5; O2SAT 96
--- NOTE | 2019-02-06 17:17 | CARD ---
APPROVED REPORT Date of service: 02/06/2019 EXAM: Two-dimensional and M-mode echocardiogram with Doppler and color Doppler. INDICATION Chest Pain prostate ca 2D DIMENSIONS IVSd0.9 (0.7-1.1cm)LVDd4.8 (3.9-5.9cm) PWd0.7 (0.7-1.1cm)LA Jtshdw64 (18-58mL) LVDs2.4 (2.5-4.0cm)FS (%) 50.9 % LVEF (%)82.0 (>50%)LVEF (Schneider's)74.91 % IVC0.00 cm M-Mode DIMENSIONS RVDd2.11 (2.1-3.2cm)Left Atrium (MM)3.39 (2.5-4.0cm) IVSd0.71 (0.7-1.1cm)Aortic Root2.97 (2.2-3.7cm) LVDd5.19 (4.0-5.6cm)Aortic Cusp Exc.2.09 (1.5-2.0cm) PWd0.76 (0.7-1.1cm)FS (%) 42 % LVDs3.03 (2.0-3.8cm)LVEF (%)72 (>50%) Mitral Valve MV E Panbgvze74.9cm/sMV A Kgsdtuep93.6cm/sE/A ratio1.3 TDI Lateral E' Peak V7.13cm/sMedial E' Peak V6.80cm/sE/Lateral E'8.5 E/Medial E'9.0 Tricuspid Valve TR Peak [id number]/sTR Peak Gr.[id number] LEFT VENTRICLE The left ventricle is normal size. There is normal left ventricular wall thickness. The left ventricular function is normal. The left ventricular ejection fraction is within the normal range. There is normal LV segmental wall motion. The left ventricular diastolic function is normal. RIGHT VENTRICLE The right ventricle is normal size. ATRIA The left atrium size is normal. The right atrium size is normal. AORTIC VALVE The aortic valve is normal in structure. MITRAL VALVE The mitral valve is normal in structure. TRICUSPID VALVE There is trace to mild tricuspid regurgitation. <Conclusion> Normal LV systolic function. Normal chamber size. Trcae to mild TR.
--- NOTE | 2019-02-06 17:50 | CARD ---
APPROVED REPORT Date of service: 02/05/2019 EKG Measurement Heart [id number] <Conclusion> Normal sinus rhythm Possible Left atrial enlargement Borderline ECG
== END 2019-02-06 18:37 | disposition home or self-care (01) ==
LOC: C.ER 12:54 → C.9E 15:30 → C.6T 16:26
PROVIDERS: ADMIT Hospitalist; ATTEND Hospitalist
DX: R07.9 Chest pain, unspecified (principal); J45.909 Unspecified asthma, uncomplicated; J98.11 Atelectasis; Z80.42 Family history of malignant neoplasm of prostate; Z85.46 Personal history of malignant neoplasm of prostate
CPT/HCPCS: 36415; 71045; 80053; 80061; 83036; 83880; 84436; 84439; 84443; 84484; 85025; 85378; 85610; 93005; 93306; 99285; G0378; J1644